=== PATIENT | male | born 1970 | race Caucasian/White ===

== ENCOUNTER 2018-08-28 13:39 | Emergency (ER) | payer SELFPAY ==
[~2018-08-28] VITALS: Ht 162.6 cm; Wt 74.8 kg
--- NOTE | 2018-08-28 13:40 | NUR ---
PT AMBULATED TO ER BED 10
[2018-08-28 13:46] VITALS: BP 142/85
--- NOTE | 2018-08-28 13:56 | NUR ---
AND PT C/O WAKING UP 6 HRS AGO AND FEELING WEAK, UNABLE TO WALK NUMBNESS ON R SIDE. ON ARRIVAL GCS 15, CLEAR DENIES CP/SOB/NVD. NO DEFICITS ON ARRIVAL. C/O HEADACHE ON ARRIVAL 01/26. HX----NONE
[2018-08-28] MEDS ORDERED: NACL 0.9% 1,000 ML IV ONE (14:15)
[2018-08-28] MEDS ORDERED: KETOROLAC 30 MG/ML VIAL IVP ONE (14:15)
--- NOTE | 2018-08-28 14:34 | NUR ---
FLU SWAB COLLECTED
[2018-08-28 15:51] VITALS: BP 130/75
--- NOTE | 2018-08-28 15:52 | NUR ---
Patient discharged with v/s stable. Written and verbal after care instructions given and explained. Patient alert, oriented and verbalized understanding of instructions. Ambulatory with steady gait. All questions addressed prior to discharge. ID band removed. Patient advised to follow up with PMD. Rx of PRILOSEC, MOTRIN AND ZOFRAN given. Patient educated on indication of medication including possible reaction and side effects. Opportunity to ask questions provided and answered.
== END 2018-08-28 15:52 | disposition home or self-care (01) ==
LOC: MED 13:39
DX: R51 Headache (principal); R11.0 Nausea; R20.0 Anesthesia of skin; R42 Dizziness and giddiness; F17.200 Nicotine dependence, unspecified, uncomplicated
CPT/HCPCS: 36415; 87804; 96361; 96374; 99283; J1885; J7030